=== PATIENT | male | born 1985 | race Asian ===

== ENCOUNTER 2020-12-13 11:31 | Outpatient (CLI) | payer BC ==
--- NOTE | 2020-12-13 12:06 | RAD ---
EXAM: Chest PA and lateral: HISTORY: TB screening COMPARISON: none FINDINGS: Lung yousif are clear. Vascular markings are normal. No evidence of primary or secondary TB. Heart and mediastinum appear unremarkable. Osseous structures are unremarkable. IMPRESSION: Unremarkable chest
== END 2020-12-13 11:32 | disposition home or self-care (01) ==
LOC: BICRAD 11:31
PROVIDERS: ATTEND Family Medicine
DX: R76.11 Nonspecific reaction to tuberculin skin test without active tuberculosis (principal)
CPT/HCPCS: 71046